=== PATIENT | female | born 1945 | race Caucasian/White ===

== ENCOUNTER → 2024-09-06 | Outpatient (CLI) | payer MEDICARE ==
[2024-09-07 02:51] LABS: HCT 40.3 % (37.2-46.3); HGB 11.8 g/dL (12.0-15.0); MCH 23.4 pg (27.0-32.0); MCHC 29.3 g/dL (32.0-37.0); Mean Platelet Volume 12.7 FL (9.5-12.2); NRBC Per 100 WBC 0 X 10*3/uL (0.00-0.01); Platelet Count 269 X 10*3/uL (140-440); RBC 5.04 X 10*6/uL (4.10-5.20); RDW 16.4 % (11.5-14.5); WBC 9.49 X 10*3/uL (4.50-10.00)
[2024-09-07 03:14] LABS: Blood Urea Nitrogen 15.6 mg/dL (9.0-27.0)
[2024-09-07 03:15] LABS: Carbon Dioxide 26.2 mmol/L (21.6-31.8); Chloride 105 mmol/L (96-109); Potassium 4.5 mmol/L (3.5-5.5); Sodium 143 mmol/L (135-145)
== END | disposition home or self-care (01) ==
LOC: LABPAT 16:02
PROVIDERS: ATTEND Internal Medicine Interventional Cardiology
CPT/HCPCS: 80051; 82565; 84520; 85027

== ENCOUNTER 2024-09-10 08:04 | Inpatient (IN) | payer MEDICARE ==
[~2024-09-10 08:04] MED LIST: ALPRAZolam 0.5 MG TAB PO PRN; NITROGLYCERIN SL TABS 0.4 MG TAB SUBLINGUAL PRN
[2024-09-10] MEDS: SODIUM CHLORIDE 0.9% 1,000 ML in EMPTY BAG 1 BAG IV SCH (08:20)
[2024-09-10] MEDS: IV FLUID CONTINUATION 1,000 ML IV ONE (08:20)
[2024-09-10] MEDS: SODIUM CHLORIDE 0.9% 1,000 ML IV SCH (08:30)
[2024-09-10] MEDS: ASPIRIN 325 MG TAB PO STA (08:47)
[2024-09-10] MEDS: ATORVASTATIN 80 MG TAB PO STA (08:47)
[2024-09-10] MEDS: HEPARIN SODIUM,PORCINE 10,000 UNIT in SODIUM CHLORIDE 0.9% 1,000 ML IRRIGATION PRN (09:53)
[2024-09-10] MEDS: HEPARIN SODIUM,PORCINE (1 ML) 2,500 UNIT in SODIUM CHLORIDE 0.9% 250 ML IRRIGATION PRN (09:53)
[2024-09-10] MEDS: VERAPAMIL SYRINGE (5 MG/10 ML) INTRAARTER ONE (10:22)
[2024-09-10] MEDS: LIDOCAINE 1% INJ 10MG/ML (20 ML MDV) SQ ONE (10:22)
[2024-09-10] MEDS: MIDAZOLAM 2 MG/2 ML VIAL IVP ONE (10:23)
[2024-09-10] MEDS: HEPARIN SODIUM 1,000 UN/ML (10ML VL) IVP ONE (10:25)
[2024-09-10] MEDS ORDERED: RX INFO: IV CONTRAST WAS GIVEN 1 EACH MISC MISCELLANE PRN (10:34)
[2024-09-10] MEDS: IOPAMIDOL-370 100ML BTL INJ ONE (10:47)
--- NOTE | 2024-09-10 10:58 | P.PCN ---
Date of Procedure: 09/10/24 Operative Findings: CARDIAC CATHETERIZATION PERFORMING PHYSICIAN: Jayce Bautista MD, RPVI PROCEDURE PERFORMED: 1. Selective right and left coronary angiogram 2. Left heart catheterization 3. Ultrasound-guided access of the right radial artery INDICATION: Chest discomfort concerning for angina COMPLICATION: None APPROACH: Right radial artery LEVEL OF SEDATION: Moderate with a sedation length of 18 minutes PROCEDURE DESCRIPTION: After obtaining an informed consent, the patient was brought to cardiac analytical lab technician. Local anesthesia was performed using lidocaine subcutaneously. The right radial artery was cannulated using Seldinger technique, the guidewire passed easily, following that we advanced a 5-[place] sheath dilator assembly, the wire and dilator were removed and sheath was flushed. Following that, 2 mg of verapamil along with 5000 unit heparin were given. Selective right and left coronary angiogram using a 6-Green[place]ic JR4 and JL 3.5 catheters. Following that we did left heart catheterization using 6-Green[place]ic pigtail catheter. The procedure was completed there was no complication. SELECTIVE CORONARY ANGIOGRAM: The right coronary artery: Calcified and large-caliber vessel and dominant vessel with ostial lesion appears to be in the range of 80% and mid lesion appears to be in the range of 80 to 90%. Left main: Calcified with ostial lesion secondary to ulcerated plaque appears to be in the range of 80 to 90% The left circumflex: Large-caliber vessel nondominant vessel with intermediate disease involving the midportion The left anterior descending artery: Medium to large caliber vessel with also mild to moderate diffuse disease noted HEMODYNAMICS: The LVEDP was about 12 mmHg with no significant gradient across aortic valve CONCLUSION: 1. Calcified right and left coronary system 2. Critical disease involving the ostial RCA and mid RCA as well as critical disease involving the ostial left main coronary artery POSTPROCEDURE MANAGEMENT: Evaluate the patient for CABG
[2024-09-10] MEDS: GABAPENTIN 400 MG CAP PO STA (12:45)
[2024-09-10 13:12] LABS: Basophils % (A) 1 %; Eosinophils # (A) 0.3 k/uL (0-0.7); Eosinophils % (A) 5 %; HCT 37.1 % (34.0-46.0); HGB 11.4 gm/dL (11.4-16.0); Hypochromasia Marked; Lymphocytes # (A) 2.5 k/uL (1.0-4.8); Lymphocytes % (A) 33 %; MCH 23.9 pg (25.0-35.0); MCHC 30.6 g/dL (31.0-37.0); MCV 78.2 fL (80.0-100.0); Monocytes # (A) 0.5 k/uL (0-1.0); Monocytes % (A) 7 %; Neutrophils % (A) 54 %; Platelet Count 208 k/uL (150-450); RBC 4.75 m/uL (3.80-5.40); RDW 15.2 % (11.5-15.5); WBC 7.5 k/uL (3.8-10.6)
[2024-09-10 13:26] LABS: Prothrombin Time 11.2 sec (10.0-12.5)
[2024-09-10] MEDS ORDERED: HEPARIN SODIUM 1,000 UN/ML (10ML VL) IV PRN (14:00)
--- NOTE | 2024-09-10 14:52 | P.GSCN ---
History of Present Illness Consult date: 09/10/24 Reason for Consult: Coronary artery disease with left main disease Requesting physician: Jayce Bautista History of present illness: This is a 79-year-old female who follows outpatient with Dr. Olivo for primary care and Dr. Bautista for cardiology. She has a previous medical history of hypertension, hyperlipidemia, asthma, trigeminal neuralgia, arthritis, previous tobacco dependence, and family history of coronary artery disease. She has been experiencing episodes of chest tightness with arm ache for approximately 1 month. This occurs mostly with activity but does occur occasionally at rest. She denies shortness of breath, nausea, vomiting, dizziness, or any other symptomatology. She was recommended to undergo heart catheterization which was completed today by Dr. Bautista which revealed left main coronary stenosis 80 to 90%, mild to moderate diffuse disease in the LAD, intermediate disease in the midportion of the left circumflex, 80% ostial RCA disease with mid RCA 80 to 90% stenosis. Of note the patient's last echocardiogram completed in the cardiology office from December of this year reported normal left ventricular systolic size and function with EF 55 to 60%, mild concentric left ventricular hypertrophy, mild aortic regurgitation, moderate mitral regurgitation, and mild tricuspid regurgitation. Due to findings on heart catheterization consultation was placed to cardiothoracic surgery for surgical revascularization recommendations. Review of Systems Review of systems was completed and was negative except as noted - Cardiovascular Reports as per HPI, Reports chest pain Past Medical History Past Medical History: Asthma, Coronary Artery Disease (CAD), Chest Pain / Angina, Hyperlipidemia, Hypertension, Osteoarthritis (OA), Skin Disorder Additional Past Medical History / Comment(s): trigeminal neuralgia, had wound on right calf-now healed History of Any Multi-Drug Resistant Organisms: None Reported Past Surgical History: Appendectomy, Hysterectomy, Tonsillectomy Additional Past Surgical History / Comment(s): rossana cataracts removed Past Anesthesia/Blood Transfusion Reactions: No Reported Reaction Past Psychological History: No Psychological Hx Reported Smoking Status: Former smoker Past Alcohol Use History: None Reported Past Drug Use History: None Reported Additional History: Quit smoking more than 30 years ago - Past Family History Mother Family Medical History: Coronary Artery Disease (CAD) Father Family Medical History: Cancer Medications and Allergies Home Medications Medication Instructions Recorded Confirmed Type Albuterol Inhaler [Ventolin Hfa 1 - 2 puff INHALATION Q6H PRN 09/08/24 09/08/24 History Inhaler] Aspirin 81 mg PO DAILY 09/08/24 09/10/24 History Atorvastatin [Lipitor] 40 mg PO HS 09/08/24 09/10/24 History Baclofen 10 mg PO HS 09/08/24 09/10/24 History Escitalopram [Lexapro] 10 mg PO DAILY 09/08/24 09/10/24 History Gabapentin [Neurontin] 800 mg PO TID 09/08/24 09/10/24 History HYDROcodone/APAP 5-325MG [[place] 1 tab PO Q6HR PRN 09/08/24 09/10/24 History 5-325] Losartan Potassium [Cozaar] 100 mg PO HS 09/08/24 09/10/24 History Metoprolol Succinate (ER) [Toprol 25 mg PO DAILY 09/08/24 09/10/24 History Xl] Allergies Allergy/AdvReac Type Severity Reaction Status Date / Time No Known Allergies Allergy Verified 09/08/24 13:15 Surgical - Exam Vital Signs Temp Pulse Resp BP Pulse Ox 97.9 F 74 16 164/68 95 09/10/24 08:17 09/10/24 08:17 09/10/24 08:17 09/10/24 08:17 09/10/24 08:17 CONSTITUTIONAL: Awake and alert, appears comfortable, cooperative, well- developed, well-nourished, no pain, no acute distress EYES: Pupils equal, round, reactive to light, normal ocular movement ENT: Moist mucous membranes without oral lesions present NECK: No masses, no bruits, trachea midline RESPIRATORY: Lungs sounds clear to auscultation bilaterally. Respirations even, nonlabored. Currently on room air with oxygen saturation 95%. Strong co ugh. No chest wall deformities. No clubbing or cyanosis present CARDIOVASCULAR: S1, S2 present. Regular rate and rhythm, sinus rhythm on telemetry. Palpable peripheral pulses bilaterally. No edema present. No calf pain or tenderness noted. No significant lower extremity varicosities noted GASTROINTESTINAL: Abdomen soft, nontender, nondistended without masses or organomegaly noted. There is no rebound or guarding present. Active bowel sounds present 4 quadrants. GENITOURINARY: Deferred INTEGUMENTARY: Skin is warm and dry with evidence of good perfusion. NEUROLOGIC: Cranial nerves II through XII intact, normal coordination, no obvious motor or sensory deficits, speech is normal MUSKULOSKELETAL: Able to move all extremities, strength equal bilaterally, normal posture PSYCHIATRIC: Alert and oriented to person place and time, appropriate affect, intact judgment and insight CLINICAL FRAILTY SCORE 3 Results - Labs 09/10/24 12:55 Abnormal Lab Results - Last 24 Hours (Table) 09/10/24 09/10/24 Range/Units 12:55 12:55 MCV 78.2 L (80.0-100.0) fL MCH 23.9 L (25.0-35.0) pg MCHC 30.6 L (31.0-37.0) g/dL APTT 39.0 H (22.0-30.0) sec - Imaging Additional studies: Heart catheterization films reviewed Assessment and Plan Assessment: Coronary artery disease with left main disease Moderate mitral regurgitation on most recent transthoracic echocardiogram Normal left ventricular systolic function with EF 55 to 60% History of hypertension Hyperlipidemia Asthma Trigeminal neuralgia Arthritis Previous tobacco dependence Family history of coronary artery disease Plan: The patient was seen and examined sitting up on a cart in the Extended Stay unit in no acute distress. Currently denies any chest pain or shortness of breath. Daughter was present. The usual perioperative course of open-heart surgery was discussed in detail the patient and her daughter, risks and benefits were reviewed, all questions were answered. Preoperative testing was initiated. Once completed we will calculate STS risk score and discuss with the patient. Will complete 5 m walk test. Discussed the case briefly with Dr. King, will discuss the case in detail with Dr. Gandhi tomorrow. Recommend continuing to maximize medical therapy with aspirin, statin, beta-daisy therapy. Increase activity as tolerated. More recommendations to follow once testing has been completed and patient has been seen by the surgeon. Thank you Dr. Bautista for this consult, we look forward to working with you in the care of this patient. I have personally seen and examined the patient, performed the documentation and the assessment and plan as written. Number of minutes spent on the visit: 30. ELEANOR Bell
--- NOTE | 2024-09-10 16:39 | US ---
EXAMINATION TYPE: US carotid duplex BILAT DATE OF EXAM: 09/10/2024 COMPARISON: NONE CLINICAL INDICATION: Female, 79 years old with history of preop cardiac surgery; Additional History: Z01.81- Pre-operative exam TECHNIQUE: Grayscale, color Doppler and spectral Doppler evaluation of the bilateral carotid systems and vertebral arteries.Indirect Doppler criteria was utilized. FINDINGS: EXAM MEASUREMENTS: RIGHT: Peak Systolic Velocity (PSV) cm/sec ----- Right CCA: 86 ----- Right ICA: 100 ----- Right ECA: 144 ICA/CCA ratio: 1.2 RIGHT: End Diastole cm/sec ----- Right CCA: 14 ----- Right ICA: 17 ----- Right ECA: 15 LEFT: Peak Systolic Velocity (PSV) cm/sec ----- Left CCA: 80 ----- Left ICA: 85 ----- Left ECA: 78 ICA/CCA ratio: 1.1 LEFT: End Diastole cm/sec ----- Left CCA: 15 ----- Left ICA: 16 ----- Left ECA: 9 VERTEBRALS (direction of flow): Right Vertebral: Antegrade Left Vertebral: Antegrade Rhythm: Normal MEDICAL TRANSCRIPTION RADIOLOGY NOTES: No intimal thickening, calcified plaque seen bilateral CCAs, CCA bulbs, and Proxim al ICAs. Elevated velocities seen within the right ECA IMPRESSION: Right: Less than 50% stenosis of the carotid bifurcation. Normal (no stenosis)=ICA PSV < 125 cm/s: ra tonya < 2.0: ICA EDV<40 cm/s. Left: Less than 50% stenosis of the carotid bifurcation. Normal (no stenosis)=ICA PSV < 125 cm/s: rat io < 2.0: ICA EDV<40 cm/s. Criteria for Assigning % of Stenosis / Diameter reduction (Estimation based on the indirect measurements of the internal carotid artery velocities (ICA PSV). 1. Normal (no stenosis)=ICA PSV < 125 cm/s: ratio < 2.0: ICA EDV<40 cm/s. 2. Less than 50% stenosis=ICA PSV < 125 cm/s: ratio < 2.0: ICA EDV<40 cm/s. 3. 50 to 69% stenosis=ICA PSV of 125 to 230 cm/s: ration 2.0 ? 4.0: ICA EDV 40-100 cm/s. 4. Greater than 70% stenosis to near occlusion= ICA PSV > 230 cm/s: ratio > 4.0: ICA EDV > 100 cm/s. 5. Near occlusion= ICA PSV velocities may be low or undetectable: variable ratio and ICA EDV. 6. Total occlusion=unable to detect flow. [facility], , 09/10/2024 4:36 PM
--- NOTE | 2024-09-10 16:40 | US ---
EXAMINATION TYPE: US vein mapping BILAT DATE OF EXAM: 09/10/2024 4:16 PM COMPARISON: NONE CLINICAL INDICATION: Female, 79 years old with history of preop cardiac surgery; TECHNIQUE: Grayscale and color Doppler imaging of the lower extremity venous system. SIDE PERFORMED: Bilateral FINDINGS: PATIENT HISTORY: Smoker: No Heart Disease: No Previous DVT: No Vascular Surgery: No Discoloration: No Hypertension: Yes Diabetes: No Paralysis: No Varicosities: No Edema: No DUPLEX FINDINGS: Greater Saphenous: Color flow seen Lesser Saphenous: Color flow seen Measurements in mm: Right Greater Saphenous: Groin: 6.4 x 7.9 mm High Thigh: 4.7 x 5.0 mm Mid Thigh: 3.9 x 5.3 mm Above Knee: 2.9 x 3.0 mm Knee: 3.7 x 4.7 mm Below Knee: 3.4 x 3.9 mm Mid Calf: 3.0 x 2.7 mm At Ankle: 2.1 x 2.7 mm Left Greater Saphenous: Groin: 8.6 x 8.1 mm High Thigh: 3.6 x 4.1 mm Mid Thigh: 4.7 x 4.8 mm Above Knee: 3.6 x 5.6 mm Knee: 3.2 x 3.2 mm Below Knee: 3.0 x 3.6 mm Mid Calf: 2.3 x 2.1 mm At Ankle: 2.3 x 2.3 mm IMPRESSION: 1. No evidence for occlusion. 2. GSV measurements listed above. 3. Performing surgeon to determine viability as conduit. [facility], Workstation: [id number], 09/10/2024 4:38 PM
--- NOTE | 2024-09-10 16:41 | US ---
EXAMINATION TYPE: US arterial LE single level DATE OF EXAM: 09/10/2024 4:23 PM CLINICAL INDICATION: Female, 79 years old with history of precardiac surgery. TECHNIQUE: Systolic pressures were taken of the upper and lower extremity arteries with ankle-brachia l indices and toe brachial indices calculated bilaterally. History of: Smoker: Yes Hypertension: Yes Diabetic: No Hyperlipidemia: Yes TIA/CVA: No Previous Vascular Surgery: No CAD: No OK: No Vascular Ulcers: No Claudication: No Gangrene: No FINDINGS: Doppler Waveforms: Right: Biphasic Left: Biphasic Pulse Volume Recording: NA Pressure Gradients: NA Brachial Artery systolic pressure: Right systolic pressure: Deferred due to catheterization Left systolic pressure: 135 Posterior Tibial artery systolic pressure: Right: 162 Left: 174 Dorsalis Pedis artery systolic pressure: Right: 147 Left: 172 Toe artery systolic pressure: Right: Not needed Left: Not needed Ankle-Brachial Indices: Right: 1.20 Left: 1.29 (Vessel hardening > 1.4; Normal 0.9 - 1.4, Moderate 0.7 - 0.9, Severe 0.5-0.7) Toe Brachial Indices: Right: Not needed Left: Not needed (Normal > 0.6; Mild 0.35 - 0.59, Moderate 0.12 - 0.34, Severe <0.12) IMPRESSION: Normal ankle-brachial brachial indices bilaterally. [facility], Workstation: [id number], 09/10/2024 4:39 PM
--- NOTE | 2024-09-10 17:45 | CT ---
EXAMINATION TYPE: CT chest wo con DATE OF EXAM: 09/10/2024 5:21 PM COMPARISON: None CLINICAL INDICATION: Female, 79 years old with history of eval aorta for clampability; PH[facility], eval aort a for clampability TECHNIQUE: Multiple axial images were obtained through the chest. Sagittal and coronal reformats were created for review. MIP was performed on a separate workstation. Contrast used: mL of (None if empty) Oral contrast used: (None if empty) CT DLP: 491.8 mGycm, Automated exposure control for dose reduction was used. FINDINGS: LUNGS/ PLEURA: No focal consolidation, pneumothorax or pleural effusion. Right upper lung pulmonary n odule measuring 4 mm series 201 image 49 AIRWAY: Patent and unremarkable. HEART: Size within normal limits.Severe coronary artery calcifications. Mild to moderate aortic valve calcifications. MEDIASTINUM: No gross evidence of adenopathy. VASCULATURE: No aortic aneurysm. Mild atherosclerosis of the arterial vasculature. MUSCULOSKELETAL: No acute osseous abnormalities SOFT TISSUES/LYMPH NODES: Unremarkable. LOWER NECK: No significant findings. UPPER ABDOMEN: Small hiatal hernia. IMPRESSION: 1. No evidence for aortic aneurysm. Mild aortic arch calcifications. 2. No acute process in the chest. 3. Severe coronary artery atherosclerosis. Mild to moderate aortic valve calcifications. 4. Right upper lung 3 mm pulmonary nodule. Consider yearly lung cancer screening. 5. Small hiatal hernia. [facility], , 09/10/2024 5:43 PM
[2024-09-10 18:09] LABS: Appearance,Urine Clear (Clear); Bilirubin,Urine Negative (Negative); Blood,Urine Negative (Negative); Color,Urine Colorless; Glucose,Urine (UA) Negative (Negative); Ketones,Urine Negative (Negative); Leukocyte Esterase,Urine Negative (Negative); Nitrite,Urine Negative (Negative); PH, Urine 6.5 (5.0-8.0); Protein,Urine Negative (Negative); Specific Gravity,Urine 1.007 (1.001-1.035); Urobilinogen,Urine <2.0 mg/dL (<2.0)
[2024-09-10] MEDS: HEPARIN SOD,PORK IN 0.45% NACL 25,000 UNIT in 0.45% NACL 1 250ML.BAG IV SCH (18:13)
[2024-09-10] MEDS: HEPARIN SODIUM 1,000 UN/ML (10ML VL) IV ONE (18:14)
[2024-09-10] MEDS: GABAPENTIN 400 MG CAP PO SCH (20:57)
[2024-09-10] MEDS: ATORVASTATIN 40 MG TAB PO SCH (20:57)
[2024-09-10] MEDS: LOSARTAN 50 MG TAB PO SCH (20:57)
[2024-09-10] MEDS: BACLOFEN 10 MG TAB PO SCH (20:57)
[2024-09-10] MEDS: ALPRAZolam 0.25 MG TAB PO PRN (23:14)
[2024-09-11 02:54] LABS: Chol/HDL Ratio 2.63 Ratio; LDL Cholesterol,Calculated 50.2 mg/dL (0.0-131.0)
[2024-09-11 03:31] LABS: Hepatitis A Antibody IgM Nonreactive (Nonreactive); Hepatitis B Core IgM Nonreactive (Nonreactive); Hepatitis B Surface Antigen Nonreactive (Nonreactive); Hepatitis C IgG Antibody Nonreactive (Nonreactive)
--- NOTE | 2024-09-11 06:34 | P.CRDCN ---
History of Present Illness Consult date: 09/11/24 History of present illness: The patient is a pleasant 79-year-old female patient with a past medical history significant for CAD and hypertension and dyslipidemia and overweight was seen in the office recently for further evaluation of chest discomfort with exertion con cerning for angina. The symptoms of chest discomfort has slightly progressed compared to before and given the nature of the symptoms I advised the patient to undergo a heart catheterization. The patient underwent a heart catheterization yesterday and that revealed extremely calcified right and left coronary systems with critical disease involving the ostial and mid RCA and critical disease involving the ostial left main with mild to moderate diffuse disease involving the LCx and LAD. With that being said an open heart consult was placed and the patient is processed to be seen by the surgical team. She was seen and evaluated this morning and she is asymptomatic and hemodynamically stable because of the finding on the heart catheterization I advised the patient to be admitted to the hospital and started on IV heparin and to undergo revascularization before she would be discharged home and that was discussed with her and her family in details and the patient is in full understanding and agreement. The physical examination is remarkable for regular rhythm with a systolic murmur at the right and left upper sternal border with clear breathing sounds bilaterally and no edema was noted. Please note that the patient underwent carotid duplex study and that showed mild disease bilaterally and CT scan also came in to be overall unremarkable Assessment Severe CAD as described above Multiple comorbid conditions including hypertension dyslipidemia Plan Continue the current medical regimen including aspirin Increase the dose of atorvastatin Waiting for the patient to be evaluated by the surgical team Continue heparin IV Past Medical History Past Medical History: Asthma, Coronary Artery Disease (CAD), Chest Pain / Angina, Hyperlipidemia, Hypertension, Osteoarthritis (OA), Skin Disorder Additional Past Medical History / Comment(s): trigeminal neuralgia, had wound on right calf-now healed History of Any Multi-Drug Resistant Organisms: None Reported Past Surgical History: Appendectomy, Hysterectomy, Tonsillectomy Additional Past Surgical History / Comment(s): rossana cataracts removed Past Anesthesia/Blood Transfusion Reactions: No Reported Reaction Past Psychological History: No Psychological Hx Reported Smoking Status: Former smoker Past Alcohol Use History: None Reported Past Drug Use History: None Reported - Past Family History Mother Family Medical History: Coronary Artery Disease (CAD) Father Family Medical History: Cancer Medications and Allergies Home Medications Medication Instructions Recorded Confirmed Type Albuterol Inhaler [Ventolin Hfa 1 - 2 puff INHALATION Q6H PRN 09/08/24 09/08/24 History Inhaler] Aspirin 81 mg PO DAILY 09/08/24 09/10/24 History Atorvastatin [Lipitor] 40 mg PO HS 09/08/24 09/10/24 History Baclofen 10 mg PO HS 09/08/24 09/10/24 History Escitalopram [Lexapro] 10 mg PO DAILY 09/08/24 09/10/24 History Gabapentin [Neurontin] 800 mg PO TID 09/08/24 09/10/24 History HYDROcodone/APAP 5-325MG [[place] 1 tab PO Q6HR PRN 09/08/24 09/10/24 History 5-325] Losartan Potassium [Cozaar] 100 mg PO HS 09/08/24 09/10/24 History Metoprolol Succinate (ER) [Toprol 25 mg PO DAILY 09/08/24 09/10/24 History Xl] Allergies Allergy/AdvReac Type Severity Reaction Status Date / Time No Known Allergies Allergy Verified 09/08/24 13:15 Physical Exam Vitals: Vital Signs Temp Pulse Resp BP BP Pulse Ox 09/11/24 04:48 98.1 F 65 18 119/56 98 09/11/24 01:15 71 09/10/24 23:17 98.6 F 71 18 148/61 93 L 09/10/24 20:00 64 09/10/24 19:59 98.0 F 67 18 137/73 97 09/10/24 16:07 67 16 135/68 95 09/10/24 13:57 76 18 157/66 97 09/10/24 11:34 72 14 116/58 94 L 09/10/24 11:04 72 16 135/60 93 L 09/10/24 10:49 78 14 138/68 94 L 09/10/24 08:17 97.9 F 74 16 164/68 148/72 95 Intake and Output 09/10/24 09/10/24 09/11/24 14:59 22:59 06:59 Intake Total 530 525.4 86.83 Balance 530 525.4 86.83 Intake: IV 530 150 Intake, IV Titration 257.4 86.83 Amount Heparin Sod,Pork in 0.45% 32.4 86.83 NaCl 25,000 unit In 0.45 % NaCl 1 250ml.bag @ 12 UNITS/KG/HR 10.764 mls/hr IV .[id number] [facility] [place] Rx#: [id number] Sodium Chloride 0.9% 1, 225 000 ml @ 75 mls/hr IV . [id number] [facility] Rx#:[id number] Oral 118 Other: Voiding Method Toilet # Voids 1 1 3 Weight 89.7 kg Results 09/10/24 12:55 Coagulation 09/10/24 09/11/24 Range/Units 12:55 00:24 PT 11.2 (10.0-12.5) sec APTT 39.0 H 169.3 H* (22.0-30.0) sec Lipids 09/10/24 Range/Units 12:55 Triglycerides 133.00 (0.00-149.00) mg/dL Cholesterol 124.00 (0.00-200.00) mg/dL HDL Cholesterol 47.20 (40.00-60.00) mg/dL Cholesterol/HDL Ratio 2.63 Ratio CBC 09/10/24 Range/Units 12:55 WBC 7.5 (3.8-10.6) k/uL RBC 4.75 (3.80-5.40) m/uL Hgb 11.4 (11.4-16.0) gm/dL Hct 37.1 (34.0-46.0) % Plt Count 208 (150-450) k/uL Current Medications Generic Name Dose Route Start Last Admin Trade Name Freq PRN Reason Stop Dose Admin Hydrocodone Bitart/Acetaminophen 1 each 09/10/24 20:02 Hydrocodone/Apap 5-325mg 1 Each Tab PO Q6HR PRN Pain Alprazolam 0.25 mg 09/10/24 07:40 09/10/24 23:14 Alprazolam 0.25 Mg Tab PO 10/10/24 07:39 0.25 mg Q6HR PRN Administration Mild Anxiety Alprazolam 0.5 mg 09/10/24 07:40 Alprazolam 0.5 Mg Tab PO 10/10/24 07:39 Q6HR PRN Moderate Anxiety Aspirin 81 mg 09/11/24 09:00 Aspirin 81 Mg PO DAILY [facility] Atorvastatin Calcium 80 mg 09/11/24 21:00 Atorvastatin 80 Mg Tab PO HS [facility] Baclofen 10 mg 09/10/24 21:00 09/10/24 20:57 Baclofen 10 Mg Tab PO 10 mg HS EMANUEL Administration Escitalopram Oxalate 10 mg 09/11/24 09:00 Escitalopram 10 Mg Tab PO DAILY EMANUEL Gabapentin 800 mg 09/10/24 22:00 09/10/24 20:57 Gabapentin 400 Mg Cap PO 800 mg TID EMANUEL Administration Heparin Sodium (Porcine) 0 unit 09/10/24 14:00 Heparin Sodium 1,000 Un/Ml (10ml Vl) IV 10/10/24 13:59 PER PROTOCOL PRN Low PTT Protocol Sodium Chloride 1,000 ml/ IV 1,000 mls @ 90.265 mls/hr 09/10/24 07:40 09/11/24 05:51 Solution IV 10/10/24 07:39 Not Given .[id number] EMANUEL 1 ML/KG/HR Heparin Sodium/Sodium Chloride 250 mls @ 10.764 mls/hr 09/10/24 14:00 09/11/24 03:23 25,000 unit/ Sodium Chloride IV 10/10/24 13:59 9 units/kg/hr .[id number] EMANUEL 8.073 mls/hr Titration Protocol 12 UNITS/KG/HR Losartan Potassium 100 mg 09/10/24 21:00 09/10/24 20:57 Losartan 50 Mg Tab PO 100 mg HS EMANUEL Administration Metoprolol Succinate 25 mg 09/11/24 09:00 Metoprolol Succinate (Er) 25 Mg Tab.Er.24h PO DAILY [facility] [place] Miscellaneous Information 1 each 09/10/24 10:34 Rx Info: Iv Contrast Was Given 1 Each Misc MISCELLANE 09/12/24 10:33 DAILY PRN Per Protocol Nitroglycerin 0.4 mg 09/10/24 07:40 Nitroglycerin Sl Tabs 0.4 Mg Tab SUBLINGUAL 10/10/24 07:39 Q5M PRN Chest Pain Intake and Output 09/10/24 09/10/24 09/11/24 14:59 22:59 06:59 Intake Total 530 525.4 86.83 Balance 530 525.4 86.83 Intake: IV 530 150 Intake, IV Titration 257.4 86.83 Amount Heparin Sod,Pork in 0.45% 32.4 86.83 NaCl 25,000 unit In 0.45 % NaCl 1 250ml.bag @ 12 UNITS/KG/HR 10.764 mls/hr IV .[id number] [facility] [place] Rx#: [id number] Sodium Chloride 0.9% 1, 225 000 ml @ 75 mls/hr IV . [id number] [facility] [place] Rx#:[id number] Oral 118 Other: Voiding Method Toilet # Voids 1 1 3 Weight 89.7 kg Patient Weight 09/11/24 06:59 Weight 89.7 kg 09/10/24 12:55
--- NOTE | 2024-09-11 07:25 | XR ---
EXAMINATION TYPE: XR chest 2V DATE OF EXAM: 09/11/2024 6:47 AM COMPARISON: None CLINICAL INDICATION: Female, 79 years old with history of preop open heart; [facility] TECHNIQUE: XR chest 2V Frontal and lateral views of the chest. FINDINGS: Lungs/Pleura: There is no evidence of pleural effusion, focal consolidation, or pneumothorax. Pulmonary vascularity: Unremarkable. Heart/mediastinum: Cardiomediastinal silhouette is unremarkable. Musculoskeletal: No acute osseous pathology. Other findings: None IMPRESSION: No acute cardiopulmonary disease/process. [facility], , 09/11/2024 7:23 AM
[2024-09-11] MEDS: HYDROcodone/APAP 5-325MG 1 EACH TAB PO PRN (09:11)
[2024-09-11] MEDS: METOPROLOL SUCCINATE (ER) 25 MG TAB.ER.24H PO SCH (09:12)
[2024-09-11] MEDS: ESCITALOPRAM 10 MG TAB PO SCH (09:12)
[2024-09-11] MEDS: ASPIRIN 81 MG PO SCH (09:12)
[2024-09-11 09:54] LABS: Basophils % (A) 0 %; Eosinophils # (A) 0.3 k/uL (0-0.7); Eosinophils % (A) 5 %; HGB 12.1 gm/dL (11.4-16.0); Hypochromasia Marked; Lymphocytes # (A) 1.6 k/uL (1.0-4.8); Lymphocytes % (A) 23 %; MCH 23.5 pg (25.0-35.0); MCHC 29.6 g/dL (31.0-37.0); MCV 79.6 fL (80.0-100.0); Mean Platelet Volume 8.3; Monocytes # (A) 0.5 k/uL (0-1.0); Monocytes % (A) 7 %; Neutrophils # (A) 4.5 k/uL (1.3-7.7); Neutrophils % (A) 65 %; Platelet Count 206 k/uL (150-450); RBC 5.16 m/uL (3.80-5.40); RDW 15.4 % (11.5-15.5)
[2024-09-11 10:05] LABS: Prothrombin Time 11.3 sec (10.0-12.5)
[2024-09-11 10:38] LABS: ALT 14 U/L (4-34); AST 23 U/L (14-36); African American GFR (CKD) 80 (>60 ml/min/1.73 sqM); Albumin 3.9 g/dL (3.5-5.0); Alkaline Phosphatase 51 U/L (38-126); Anion Gap 8 mmol/L; Blood Urea Nitrogen 13 mg/dL (7-17); Calcium 8.8 mg/dL (8.4-10.2); Carbon Dioxide 26 mmol/L (22-30); Chloride 109 mmol/L (98-107); Glucose 118 mg/dL (74-99); Magnesium 2.1 mg/dL (1.6-2.3); Non-African American GFR(CKD) 70 (>60 ml/min/1.73 sqM); Potassium 4.2 mmol/L (3.5-5.1); Sodium 143 mmol/L (137-145); Total Bilirubin 0.4 mg/dL (0.2-1.3); Total Protein 6.6 g/dL (6.3-8.2)
[2024-09-11] MEDS: ATORVASTATIN 80 MG TAB PO SCH (20:57)
--- NOTE | 2024-09-12 06:53 | P.PN ---
Subjective Progress Note Date: 09/12/24 The patient is a pleasant 79-year-old female patient with a past medical history significant for CAD and hypertension and dyslipidemia and overweight was seen in the office recently for further evaluation of chest discomfort with exertion concerning for angina. The symptoms of chest discomfort has slightly progressed compared to before and given the nature of the symptoms I advised the patient to undergo a heart catheterization. The patient underwent a heart catheterization yesterday and that revealed extremely calcified right and left coronary systems with critical disease involving the ostial and mid RCA and critical disease involving the ostial left main with mild to moderate diffuse disease involving the LCx and LAD. With that being said an open heart consult was placed and the patient is processed to be seen by the surgical team. She was seen and evaluated this morning and she is asymptomatic and hemodynamically stable because of the finding on the heart catheterization I advised the patient to be admitted to the hospital and started on IV heparin and to undergo revascularization before she would be discharged home and that was discussed with her and her family in details and the patient is in full understanding and agreement. The physical examination is remarkable for regular rhythm with a systolic murmur at the right and left upper sternal border with clear breathing sounds bilaterally and no edema was noted. Please note that the patient underwent carotid duplex study and that showed mild disease bilaterally and CT scan also came in to be overall unremarkable October 09, 2024 The patient was seen and evaluated this morning. She talk to her family yesterday and she would like to proceed with percutaneous coronary intervention. The procedure in details was discussed with the patient and the family yesterday and they are in full understanding and agreement that the procedure is a high risk procedure. Will plan to proceed with PCI later on today with adjunc tive use of Impella CP for support. She reports no symptoms of chest pain or chest discomfort at this point since she was started on heparin. Examination is remarkable for regular rhythm with a clear breathing sounds bilaterally and no edema was noted. Will follow-up on the echocardiogram as well. Assessment Severe CAD as described above Multiple comorbid conditions including hypertension dyslipidemia Plan Continue the current medical regimen including aspirin Increase the dose of atorvastatin Follow-up with the echocardiogram Proceed with PCI Objective - Vital Signs Vital signs: Vital Signs Temp 98.0 F 09/12/24 04:51 Pulse 75 09/12/24 04:51 Resp 16 09/12/24 04:51 BP 135/73 09/12/24 04:51 Pulse Ox 96 09/12/24 04:51 FiO2 Intake & Output 09/11/24 09/11/24 09/12/24 06:59 18:59 05:59 Intake Total 344.23 1293.857 Balance 344.23 1293.857 Weight 88.8 kg Intake: Intake, IV Titration 344.23 93.857 Amount Heparin Sod,Pork in 0.45% 119.23 93.857 NaCl 25,000 unit In 0.45 % NaCl 1 250ml.bag @ 12 UNITS/KG/HR 10.764 mls/hr IV .[id number] [facility] Rx#: [id number] Sodium Chloride 0.9% 1, 225 000 ml @ 75 mls/hr IV . [id number] [facility] Rx#:[id number] Oral 1200 Other: Voiding Method Toilet Toilet # Voids 3 2 - Labs CBC & Chem 7: 09/11/24 09:38 09/11/24 09:38 Labs: Abnormal Lab Results - Last 24 Hours (Table) 09/11/24 09/11/24 09/11/24 Range/Units 09:38 09:38 09:38 MCV 79.6 L (80.0-100.0) fL MCH 23.5 L (25.0-35.0) pg MCHC 29.6 L (31.0-37.0) g/dL APTT 80.7 H (22.0-30.0) sec Chloride 109 H (98-107) mmol/L Glucose 118 H (74-99) mg/dL 09/11/24 Range/Units 16:26 MCV (80.0-100.0) fL MCH (25.0-35.0) pg MCHC (31.0-37.0) g/dL APTT 49.2 H (22.0-30.0) sec Chloride (98-107) mmol/L Glucose (74-99) mg/dL Microbiology - Last 24 Hours (Table) 09/10/24 12:55 Nasal Screen MRSA/MSSA - Final Nasal Swab
[2024-09-12 06:59] LABS: Basophils % (A) 0 %; Eosinophils # (A) 0.3 k/uL (0-0.7); Eosinophils % (A) 4 %; HCT 39.7 % (34.0-46.0); HGB 11.8 gm/dL (11.4-16.0); Hypochromasia Marked; Lymphocytes % (A) 31 %; MCH 23.4 pg (25.0-35.0); MCHC 29.6 g/dL (31.0-37.0); MCV 79.2 fL (80.0-100.0); Mean Platelet Volume 7.2; Monocytes # (A) 0.5 k/uL (0-1.0); Monocytes % (A) 8 %; Neutrophils # (A) 3.4 k/uL (1.3-7.7); Neutrophils % (A) 53 %; Platelet Count 193 k/uL (150-450); RBC 5.02 m/uL (3.80-5.40); RDW 15.2 % (11.5-15.5); WBC 6.4 k/uL (3.8-10.6)
[2024-09-12 07:21] LABS: African American GFR (CKD) 76 (>60 ml/min/1.73 sqM); Anion Gap 3 mmol/L; Blood Urea Nitrogen 13 mg/dL (7-17); Calcium 8.9 mg/dL (8.4-10.2); Carbon Dioxide 28 mmol/L (22-30); Chloride 109 mmol/L (98-107); Glucose 83 mg/dL (74-99); Non-African American GFR(CKD) 66 (>60 ml/min/1.73 sqM); Potassium 4.2 mmol/L (3.5-5.1); Sodium 140 mmol/L (137-145)
--- NOTE | 2024-09-12 08:05 | P.PN ---
Subjective Progress Note Date: 09/12/24 Principal diagnosis: Coronary artery disease with left main disease. History of moderate mitral regurgitation on transthoracic echocardiogram 12/2023, hypertension, hyperlipidemia, asthma, trigeminal neuralgia, arthritis, previous tobacco dependence with moderate COPD, family history of coronary artery disease The patient was seen and examined this morning sitting up in bed on the cardiac stepdown unit in no acute distress. She denies any chest pain or shortness of breath currently. Remains in sinus rhythm, hemodynamically stable. She was seen yesterday by Dr. Gandhi with daughter present, recommendations for open heart surgery were discussed with the patient, however she felt she would prefer stenting. This was discussed in detail between Dr. Gandhi and Dr. Bautista. E chocardiogram was repeated to evaluate mitral regurgitation. Apparently the patient did discuss with Dr. Bautista that she would prefer stenting knowing that it is higher risk, states at her age she does not want open heart surgery. We did let patient know we are available if she needs us in the future. Objective - Vital Signs Vital signs: Vital Signs Temp 98.0 F 09/12/24 04:51 Pulse 75 09/12/24 04:51 Resp 16 09/12/24 04:51 BP 135/73 09/12/24 04:51 Pulse Ox 96 09/12/24 04:51 FiO2 Intake & Output 09/11/24 09/12/24 09/12/24 19:59 06:59 18:59 Intake Total Balance Weight Intake: Intake, IV Titration Amount Heparin Sod,Pork in 0.45% NaCl 25,000 unit In 0.45 % NaCl 1 250ml.bag @ 12 UNITS/KG/HR 10.764 mls/hr IV .[id number] [facility] Rx#: [id number] Oral Other: Voiding Method # Voids - Exam CONSTITUTIONAL: Appears comfortable, cooperative, no acute distress RESPIRATORY: Lungs sounds clear bilaterally. Respirations even, nonlabored. Currently on room air with oxygen saturation 96% CARDIOVASCULAR: S1, S2 present. Regular rate and rhythm, sinus rhythm on telemetry. Palpable peripheral pulses bilaterally. No edema present GASTROINTESTINAL: Abdomen soft, nontender, nondistended. Active bowel sounds present 4 quadrants. Tolerating diet GENITOURINARY: Continues to void INTEGUMENTARY: Skin is warm and dry NEUROLOGIC: Cranial nerves II through XII intact MUSKULOSKELETAL: Able to move all extremities, strength equal bilaterally, gait normal PSYCHIATRIC: Alert and oriented to person place and time, appropriate affect, intact judgment and insight - Allied health notes Allied health notes reviewed: nursing - Labs CBC & Chem 7: 09/12/24 06:43 09/12/24 06:43 Labs: Abnormal Lab Results - Last 24 Hours (Table) 09/11/24 09/11/24 09/11/24 Range/Units 09:38 09:38 09:38 MCV 79.6 L (80.0-100.0) fL MCH 23.5 L (25.0-35.0) pg MCHC 29.6 L (31.0-37.0) g/dL APTT 80.7 H (22.0-30.0) sec Chloride 109 H (98-107) mmol/L Glucose 118 H (74-99) mg/dL 09/11/24 09/12/24 09/12/24 Range/Units 16:26 06:43 06:43 MCV 79.2 L (80.0-100.0) fL MCH 23.4 L (25.0-35.0) pg MCHC 29.6 L (31.0-37.0) g/dL APTT 49.2 H (22.0-30.0) sec Chloride 109 H (98-107) mmol/L Glucose (74-99) mg/dL 09/12/24 Range/Units 06:43 MCV (80.0-100.0) fL MCH (25.0-35.0) pg MCHC (31.0-37.0) g/dL APTT 35.6 H (22.0-30.0) sec Chloride (98-107) mmol/L Glucose (74-99) mg/dL Microbiology - Last 24 Hours (Table) 09/10/24 12:55 Nasal Screen MRSA/MSSA - Final Nasal Swab Assessment and Plan Assessment: Coronary artery disease with left main disease Moderate mitral regurgitation on most recent transthoracic echocardiogram Normal left ventricular systolic function with EF 55 to 60% History of hypertension Hyperlipidemia Asthma Trigeminal neuralgia Arthritis Previous tobacco dependence COPD, FEV1 52% of predicted Family history of coronary artery disease Plan: Continue to maximize medical therapy with aspirin, statin, beta-daisy, IV heparin Plan is for PCI with Impella support by Dr. Bautista Will sign off. Please contact us with any questions
--- NOTE | 2024-09-12 09:54 | P.HPIM ---
History of Present Illness H&P Date: 09/11/24 Chief Complaint: Chest pain Patient is a 79-year-old female with a past medical history of asthma, hypertension, hyperlipidemia, osteoarthritis and prior history of smoking. Patient had cardiac catheterization on 09/10/2024 due to anginal symptoms. She was found to have calcified right and left coronary system and critical disease involving the ostial RCA and mid RCA as well as critical disease involving the ostial left main coronary artery. Cardiothoracic surgery was consulted for evaluation of CABG. Carotid duplex showed less than 50% stenosis of the carotid bifurcation on the right side and less than 50% stenosis of the carotid bifurcation on the left side. Lower extremity ultrasound showed normal ankle- brachial indicis bilaterally. CT chest showed no evidence for aortic aneurysm. Mild aortic arch calcifications. No acute process in the chest. Severe coronary atherosclerosis. Mild to moderate aortic valve calcifications. Right upper lobe 3 mm pulmonary nodule. Consider yearly lung cancer screening. Small hiatal hernia. Laboratory data showed WBC 7.0 hemoglobin 12.1 MCV 79.6 and platelets 206 sodium 143 potassium 4.2 chloride 109 bicarb is 26 BUN 13 and creatinine 0.81 blood sugar is 118 liver enzymes are not elevated the LDL 50.2 TSH 1.760. Hepatitis panel negative. Review of Systems Constitutional: Patient denies any fever or chills . No generalized weakness or weight loss. Abdomen: Patient denied nausea vomiting and diarrhea and abdominal pain. Cardiovascular: Patient denies any chest pain or short of breath no palpitations. Respiratory: patient denied any cough or sputum production. No shortness of breath Neurologic: Patient denied any numbness or tingling. no headache. Musculoskeletal: Patient denies any complaints of joint swelling or deformity. Skin: Negative Psychiatric: Negative Endocrine: No heat or cold intolerance. No recent weight gain. Genitourinary: No dysuria or hematuria. All other 14 point ROS negative except the above Past Medical History Past Medical History: Asthma, Coronary Artery Disease (CAD), Chest Pain / Angina, Hyperlipidemia, Hypertension, Osteoarthritis (OA), Skin Disorder Additional Past Medical History / Comment(s): trigeminal neuralgia, had wound on right calf-now healed History of Any Multi-Drug Resistant Organisms: None Reported Past Surgical History: Appendectomy, Hysterectomy, Tonsillectomy Additional Past Surgical History / Comment(s): rossana cataracts removed Past Anesthesia/Blood Transfusion Reactions: No Reported Reaction Past Psychological History: No Psychological Hx Reported Smoking Status: Former smoker Past Alcohol Use History: None Reported Past Drug Use History: None Reported - Past Family History Mother Family Medical History: Coronary Artery Disease (CAD) Father Family Medical History: Cancer Medications and Allergies Home Medications Medication Instructions Recorded Confirmed Type Albuterol Inhaler [Ventolin Hfa 1 - 2 puff INHALATION Q6H PRN 09/08/24 09/08/24 History Inhaler] Aspirin 81 mg PO DAILY 09/08/24 09/10/24 History Atorvastatin [Lipitor] 40 mg PO HS 09/08/24 09/10/24 History Baclofen 10 mg PO HS 09/08/24 09/10/24 History Escitalopram [Lexapro] 10 mg PO DAILY 09/08/24 09/10/24 History Gabapentin [Neurontin] 800 mg PO TID 09/08/24 09/10/24 History HYDROcodone/APAP 5-325MG [[place] 1 tab PO Q6HR PRN 09/08/24 09/10/24 History 5-325] Losartan Potassium [Cozaar] 100 mg PO HS 09/08/24 09/10/24 History Metoprolol Succinate (ER) [Toprol 25 mg PO DAILY 09/08/24 09/10/24 History Xl] Allergies Allergy/AdvReac Type Severity Reaction Status Date / Time No Known Allergies Allergy Verified 09/08/24 13:15 Physical Exam Vitals: Vital Signs Temp Pulse Resp BP BP Pulse Ox 09/11/24 04:48 98.1 F 65 18 119/56 98 09/11/24 01:15 71 09/10/24 23:17 98.6 F 71 18 148/61 93 L 09/10/24 20:00 64 09/10/24 19:59 98.0 F 67 18 137/73 97 09/10/24 16:07 67 16 135/68 95 09/10/24 13:57 76 18 157/66 97 09/10/24 11:34 72 14 116/58 94 L 09/10/24 11:04 72 16 135/60 93 L Intake and Output 09/10/24 09/11/24 09/11/24 22:59 06:59 14:59 Intake Total 525.4 86.83 57.857 Balance 525.4 86.83 57.857 Intake: IV 150 Intake, IV Titration 257.4 86.83 57.857 Amount Heparin Sod,Pork in 0.45% 32.4 86.83 57.857 NaCl 25,000 unit In 0.45 % NaCl 1 250ml.bag @ 12 UNITS/KG/HR 10.764 mls/hr IV .[id number] [facility] Rx#: [id number] Sodium Chloride 0.9% 1, 225 000 ml @ 75 mls/hr IV . [id number] [facility] Rx#:[id number] Oral 118 Other: Voiding Method Toilet # Voids 1 3 PHYSICAL EXAMINATION: Patient is lying in the bed comfortably, no acute distress, awake alert and oriented.. HEENT: Normocephalic. Neck is supple. Pupils reactive. Nostrils clear. Oral cavity is moist. Neck reveals no JVD, carotid bruits, or thyromegaly. CHEST EXAMINATION: Trachea is central. Symmetrical expansion. Lung aguila clear to auscultation and percussion. CARDIAC: Normal S1, S2 with no gallops. Systolic murmur present ABDOMEN: Soft. Bowel sounds normal. No organomegaly. No abdominal bruits. Extremities: reveal no edema. No clubbing or cyanosis Neurologically awake, alert, oriented x3 with well-coordinated movements. No focal deficits noted Skin: No rash or skin lesions. Psychiatric: Coperative. Nonsuicidal Musculoskeletal: No joint swelling or deformity. Normal range of motion. Results CBC & Chem 7: 09/12/24 06:43 09/12/24 06:43 Labs: Abnormal Lab Results - Last 24 Hours (Table) 09/10/24 09/10/24 09/10/24 Range/Units 12:55 12:55 12:55 MCV 78.2 L (80.0-100.0) fL MCH 23.9 L (25.0-35.0) pg MCHC 30.6 L (31.0-37.0) g/dL APTT 39.0 H (22.0-30.0) sec Chloride (98-107) mmol/L Glucose (74-99) mg/dL Hemoglobin A1c 6.2 H (<=6.0) % 09/11/24 09/11/24 09/11/24 Range/Units 00:24 09:38 09:38 MCV 79.6 L (80.0-100.0) fL MCH 23.5 L (25.0-35.0) pg MCHC 29.6 L (31.0-37.0) g/dL APTT 169.3 H* (22.0-30.0) sec Chloride 109 H (98-107) mmol/L Glucose 118 H (74-99) mg/dL Hemoglobin A1c (<=6.0) % 09/11/24 Range/Units 09:38 MCV (80.0-100.0) fL MCH (25.0-35.0) pg MCHC (31.0-37.0) g/dL APTT 80.7 H (22.0-30.0) sec Chloride (98-107) mmol/L Glucose (74-99) mg/dL Hemoglobin A1c (<=6.0) % Thrombosis Risk Factor Assmnt - DVT/VTE Prophylaxis DVT/VTE Prophylaxis: Pharmacologic Prophylaxis ordered - Choose All That Apply Any of the Below Risk Factors Present?: No Each Risk Factor Represents 3 Points: Age 75 years or older Thrombosis Risk Factor Assessment Total Risk Factor Score: 3 Thrombosis Risk Factor Assessment Level: Moderate Risk Assessment and Plan Assessment: Severe coronary artery disease. Post cardiac catheterization on 09/10/2024 showed critical disease involving the ostial RCA and mid RCA as well as critical disease involving the ostial left main coronary artery. Hypertension Hyperlipidemia Asthma Osteoarthritis Prior history of smoking DVT prophylaxis and GI prophylaxis Plan: Patient is being continued on aspirin, statin and metoprolol and losartan. Continued on heparin drip. Cardiology is on board. CT surgery was consulted and preoperative workup for CABG is being done at this time. Family has not finalized her decision regarding bypass graft. Will continue to follow closely. Prognosis is guarded. Time with Patient: Greater than 30
--- NOTE | 2024-09-12 15:17 | CA ---
Transthoracic Echo Report Name: Elenita Cates Age: 79 Gender: F : 1945 Exam Date: 09/11/2024 13:28 Exam Location: [facility] Ht (in): 62 Wt (lb): 197 Ordering Physician: Jayce Bautista MD ([id number]) Attending/Referring Phys: Internet Application Developer Lavern Mccray RDCS Procedure CPT: Indications: post cath Cardiac Hx: Technical Quality: Fair Contrast 1: Total Dose (mL): Contrast 2: Total Dose (mL): MEASUREMENTS (Male / Female) Normal Values 2D ECHO LV Diastolic Diameter PLAX 4.3 cm 4.2 - 5.9 / 3.9 - 5.3 cm LV Systolic Diameter PLAX 2.7 cm IVS Diastolic Thickness 1.1 cm 0.6 - 1.0 / 0.6 - 0.9 cm LVPW Diastolic Thickness 1.5 cm 0.6 - 1.0 / 0.6 - 0.9 cm LV Relative Wall Thickness 0.6 RV Internal Dim ED PLAX 1.6 cm LVOT Diameter 1.7 cm LA Systolic Diameter LX 3.7 cm 3.0 - 4.0 / 2.7 - 3.8 cm LV Diastolic Volume MOD BP 52.8 cm??? 67 - 155 / 56 - 104 cm??? LV Systolic Volume MOD BP 19.9 cm??? 22 - 58 / 19 - 49 cm??? LV Ejection Fraction MOD BP 62.3 % >= 55 % LV Cardiac Index MOD BP 1206.0 cm???/min???m??? LV Diastolic Volume MOD 4C 42.9 cm??? LV Systolic Volume MOD 4C 17.3 cm??? LV Ejection Fraction MOD 4C 59.7 % LV Cardiac Index MOD 4C 938.3 cm???/min???m??? LV Diastolic Length 4C 6.7 cm LV Systolic Length 4C 5.6 cm LV Diastolic Volume MOD 2C 63.3 cm??? LV Systolic Volume MOD 2C 21.4 cm??? LV Ejection Fraction MOD 2C 66.2 % LV Cardiac Index MOD 2C 1535.8 cm???/min???m??? LV Diastolic Length 2C 6.9 cm LV Systolic Length 2C 6.1 cm LA Volume 66.2 cm??? 18 - 58 / 22 - 52 cm??? LA Volume Index 32.8 cm???/m??? 16 - 28 cm???/m??? M-MODE Aortic Root Diameter MM 2.4 cm LA Systolic Diameter MM 3.9 cm LA Ao Ratio MM 1.7 AV Cusp Separation MM 1.3 cm DOPPLER AV Peak Velocity 195.2 cm/s AV Peak Gradient 15.2 mmHg AV Mean Velocity 140.6 cm/s AV Mean Gradient 8.7 mmHg AV Velocity Time Integral 46.0 cm AI Peak Velocity 333.8 cm/s AI Peak Gradient 44.6 mmHg AI Pressure Half Time 732.6 ms LVOT Peak Velocity 128.7 cm/s LVOT Peak Gradient 6.6 mmHg LVOT Velocity Time Integral 34.9 cm LVOT Stroke Volume 83.0 cm??? LVOT Stroke Volume Index 43.7 ml/m??? LVOT Cardiac Index 3042.2 cm???/min???m??? AV Area Cont Eq vti 1.8 cm??? AV Area Cont Eq pk 1.6 cm??? MV Area PHT 2.8 cm??? Mitral E Point Velocity 99.8 cm/s Mitral A Point Velocity 88.7 cm/s Mitral E to A Ratio 1.1 MV Deceleration Time 270.9 ms TR Peak Velocity 265.0 cm/s TR Peak Gradient 28.1 mmHg Right Ventricular Systolic Press 32.5 mmHg FINDINGS Left Ventricle Left ventricular ejection fraction is estimated at 55-60 %. Mildly increased septal wall thickness. Moderately increased posterior wall thickness. Normal left ventricular systolic function with no obvious regional wall motion abnormalities. Left ventricular cavity size normal. Right Ventricle Normal right ventricular size and function. Right ventricular systolic pressure within normal limits. Right Atrium Normal right atrial size. Left Atrium Moderate left atrial dilatation. Mitral Valve Structurally normal mitral valve. Mitral annular calcification. Moderate mitral regurgitation. Aortic Valve Trileaflet aortic valve. Diffuse thickening (sclerosis) of the aortic valve cusps without reduced excursion. Mild aortic regurgitation. Tricuspid Valve Structurally normal tricuspid valve. Mild tricuspid regurgitation. No tricuspid stenosis. Pulmonic Valve Structurally normal pulmonic valve. Trace pulmonic regurgitation. No pulmonic stenosis. Pericardium No pericardial or pleural effusion. Aorta Normal size aortic root and proximal ascending aorta. CONCLUSIONS Normal LV systolic function Moderate mitral regurgitation Previewed by: Dr. Jayce Bautista MD (Electronically Signed) Final Date: 12 September 2024 15:16
[2024-09-12 17:14] LABS: % Iron Saturation 25.99 (12.00-45.00); Iron 79 UG/DL (50-170); Total Iron Binding Capacity 304 UG/DL (228-460)
[2024-09-13] MEDS: SODIUM CHLORIDE 0.9% 1,000 ML in EMPTY BAG 1 BAG IV ONE (02:59)
[2024-09-13] MEDS: ATORVASTATIN 80 MG TAB PO ONE (05:34)
[2024-09-13] MEDS: ASPIRIN 325 MG TAB PO ONE (05:34)
[2024-09-13 05:46] LABS: Glucose,Whole Blood 120 mg/dL (70-110)
[2024-09-13] MEDS ORDERED: ASPIRIN 325 MG TAB PO STA (08:19)
[2024-09-13 08:33] LABS: Basophils % (A) 0 %; Eosinophils # (A) 0.3 k/uL (0-0.7); Eosinophils % (A) 4 %; HCT 41.5 % (34.0-46.0); HGB 11.9 gm/dL (11.4-16.0); Hypochromasia Marked; Lymphocytes % (A) 22 %; MCH 22.9 pg (25.0-35.0); MCHC 28.6 g/dL (31.0-37.0); MCV 79.8 fL (80.0-100.0); Mean Platelet Volume 7.2; Monocytes # (A) 0.5 k/uL (0-1.0); Monocytes % (A) 6 %; Neutrophils # (A) 5.9 k/uL (1.3-7.7); Neutrophils % (A) 66 %; Platelet Count 201 k/uL (150-450); RDW 15.4 % (11.5-15.5)
[2024-09-13 08:49] LABS: African American GFR (CKD) 65 (>60 ml/min/1.73 sqM); Anion Gap 6 mmol/L; Blood Urea Nitrogen 15 mg/dL (7-17); Calcium 9.4 mg/dL (8.4-10.2); Carbon Dioxide 27 mmol/L (22-30); Chloride 108 mmol/L (98-107); Glucose 86 mg/dL (74-99); Non-African American GFR(CKD) 56 (>60 ml/min/1.73 sqM); Potassium 4.8 mmol/L (3.5-5.1); Sodium 141 mmol/L (137-145)
[2024-09-13] MEDS: ATORVASTATIN 80 MG TAB PO STA (09:38)
--- NOTE | 2024-09-13 09:54 | P.PN ---
Subjective Progress Note Date: 09/12/24 Patient is a 79-year-old female with a past medical history of asthma, hypertension, hyperlipidemia, osteoarthritis and prior history of smoking. Patient had cardiac catheterization on 09/10/2024 due to anginal symptoms. She was found to have calcified right and left coronary system and critical disease involving the ostial RCA and mid RCA as well as critical disease involving the ostial left main coronary artery. Cardiothoracic surgery was consulted for evaluation of CABG. Carotid duplex showed less than 50% stenosis of the carotid bifurcation on the right side and less than 50% stenosis of the carotid bifurcation on the left side. Lower extremity ultrasound showed normal ankle- brachial indicis bilaterally. CT chest showed no evidence for aortic aneurysm. Mild aortic arch calcifications. No acute process in the chest. Severe coronary atherosclerosis. Mild to moderate aortic valve calcifications. Right upper lobe 3 mm pulmonary nodule. Consider yearly lung cancer screening. Small h iatal hernia. Laboratory data showed WBC 7.0 hemoglobin 12.1 MCV 79.6 and platelets 206 sodium 143 potassium 4.2 chloride 109 bicarb is 26 BUN 13 and creatinine 0.81 blood sugar is 118 liver enzymes are not elevated the LDL 50.2 TSH 1.760. Hepatitis panel negative. 09/12/2024 Patient is currently sitting on side of the bed. Awake alert and orient x 3. Currently on room air. No complaints of chest pain or shortness of breath. No cough or sputum production. Patient is tolerating oral diet. Laboratories show WBC 6.4 hemoglobin 11.8 and platelets 193 MCV 79.2 Sodium 140 potassium 4.2 chloride 108 bicarb is 28 BUN 13 and creatinine 0.84 and blood sugar [address] surgery is on board. Objective - Vital Signs Vital signs: Vital Signs Temp 98.0 F 09/12/24 04:51 Pulse 75 09/12/24 04:51 Resp 16 09/12/24 04:51 BP 135/73 09/12/24 04:51 Pulse Ox 96 09/12/24 04:51 FiO2 Intake & Output 09/11/24 09/12/24 09/12/24 19:59 06:59 18:59 Intake Total 356.952 Balance 356.952 Weight Intake: Intake, IV Titration 106.952 Amount Heparin Sod,Pork in 0.45% 106.952 NaCl 25,000 unit In 0.45 % NaCl 1 250ml.bag @ 12 UNITS/KG/HR 10.764 mls/hr IV .[id number] [facility] Rx#: [id number] Oral 250 Other: Voiding Method # Voids - Exam PHYSICAL EXAMINATION: Patient is lying in the bed comfortably, no acute distress, awake alert and oriented.. HEENT: Normocephalic. Neck is supple. Pupils reactive. Nostrils clear. Oral cavity is moist. Neck reveals no JVD, carotid bruits, or thyromegaly. CHEST EXAMINATION: Trachea is central. Symmetrical expansion. Lung aguila clear to auscultation and percussion. CARDIAC: Normal S1, S2 with no gallops. Systolic murmur present ABDOMEN: Soft. Bowel sounds normal. No organomegaly. No abdominal bruits. Extremities: reveal no edema. No clubbing or cyanosis Neurologically awake, alert, oriented x3 with well-coordinated movements. No focal deficits noted Skin: No rash or skin lesions. Psychiatric: Coperative. Nonsuicidal Musculoskeletal: No joint swelling or deformity. Normal range of motion. - Labs CBC & Chem 7: 09/13/24 08:17 09/13/24 08:17 Labs: Abnormal Lab Results - Last 24 Hours (Table) 09/11/24 09/12/24 09/12/24 Range/Units 16:26 06:43 06:43 MCV 79.2 L (80.0-100.0) fL MCH 23.4 L (25.0-35.0) pg MCHC 29.6 L (31.0-37.0) g/dL APTT 49.2 H (22.0-30.0) sec Chloride 109 H (98-107) mmol/L 09/12/24 Range/Units 06:43 MCV (80.0-100.0) fL MCH (25.0-35.0) pg MCHC (31.0-37.0) g/dL APTT 35.6 H (22.0-30.0) sec Chloride (98-107) mmol/L Microbiology - Last 24 Hours (Table) 09/10/24 12:55 Nasal Screen MRSA/MSSA - Final Nasal Swab Assessment and Plan Assessment: Severe coronary artery disease. Post cardiac catheterization on 09/10/2024 showed critical disease involving the ostial RCA and mid RCA as well as critical disease involving the ostial left main coronary artery. Hypertension Hyperlipidemia Asthma Osteoarthritis Prior history of smoking Microcytic anemia. Rule out iron deficiency DVT prophylaxis and GI prophylaxis Plan: Patient is being continued on aspirin, statin and metoprolol and losartan. Continued on heparin drip. CT surgery was consulted and preoperative workup for CABG is being done at this time. Family has not finalized her decision regarding bypass graft. Cardiology is on board.Will continue to follow closely. Prognosis is guarded.
[2024-09-13] MEDS: IV FLUID CONTINUATION 1,000 ML IV ONE (12:05)
[2024-09-13] MEDS: fentaNYL (PF) 50 MCG/ML 2 ML AMP IVP ONE (12:13)
[2024-09-13] MEDS: MIDAZOLAM 2 MG/2 ML VIAL IVP ONE (12:13)
[2024-09-13] MEDS: LIDOCAINE 1% INJ 10MG/ML (20 ML MDV) SQ ONE (12:13)
[2024-09-13] MEDS: HEPARIN SODIUM 1,000 UN/ML (10ML VL) IV ONE (12:28)
[2024-09-13] MEDS: TICAGRELOR 90 MG TAB PO ONE (12:40)
[2024-09-13] MEDS: NITROGLYCERIN 1000MCG/10ML SYRINGE INTRACORON ONE ×2 (13:18→14:17)
[2024-09-13] MEDS: IOPAMIDOL-370 100ML BTL INJ ONE ×2 (13:20→14:27)
[2024-09-13] MEDS: SODIUM CHLORIDE 0.9% 1,000 ML IV ONE (13:47)
[2024-09-13] MEDS: MORPHINE SULFATE 4 MG/ML SYRINGE IVP ONE (14:16)
--- NOTE | 2024-09-13 14:34 | US ---
EXAMINATION TYPE: Pre-Operative Non-Invasive Evaluation of the hand for Potential Radial Artery Yessenia venegas, Measurements only DATE OF EXAM: 09/10/2024 4:27 PM CLINICAL INDICATION: Female, 79 years old with history of measurements only; , Preop- Cardiac Surgery Technique: grayscale and color Doppler imaging of the radial artery(s) SIDE PERFORMED: Left FINDINGS: Dominant hand: Right Duplex Findings: Radial Artery: Color flow seen Measurements in mm, transverse view: Left Radial: Proximal: 1.6 x 1.6 mm Mid: 1.6 x 1.5 mm Distal: 1.2 x 1.1 mm IMPRESSION: 1. No evidence for vascular occlusion. 2. Measurements as described above. [facility], , 09/13/2024 2:32 PM
[2024-09-13] MEDS: HEPARIN SODIUM,PORCINE (1 ML) 2,500 UNIT in SODIUM CHLORIDE 0.9% 250 ML IRRIGATION PRN (14:35)
[2024-09-13] MEDS: HEPARIN SODIUM,PORCINE 10,000 UNIT in SODIUM CHLORIDE 0.9% 1,000 ML IRRIGATION PRN (14:35)
[2024-09-13] MEDS ORDERED: ZOLPIDEM 5 MG TAB PO PRN (14:36)
[2024-09-13] MEDS ORDERED: ATROPINE SULFATE 0.1 MG/ML 10ML SYRINGE IV PRN (14:36)
[2024-09-13] MEDS ORDERED: RX INFO: IV CONTRAST WAS GIVEN 1 EACH MISC MISCELLANE PRN (14:36)
[2024-09-13] MEDS ORDERED: MAG HYDROX/AL HYDROX/SIMETH 30 ML CUP PO PRN (14:36)
[2024-09-13 14:55] LABS: Glucose,Whole Blood 87 mg/dL (70-110)
[2024-09-13] MEDS: SODIUM CHLORIDE 0.9% 1,000 ML in EMPTY BAG 1 BAG IV SCH (15:00)
[2024-09-13] MEDS: ENALAPRILAT 1.25 MG/ML 1 ML VIAL IVP STA (15:42)
[2024-09-13] MEDS: hydrALAZINE HCL 20 MG/ML 1 ML VIAL IVP STA (15:42)
--- NOTE | 2024-09-13 17:33 | P.PCN ---
Date of Procedure: 09/13/24 Operative Findings: Percutaneous coronary intervention Performing physician Jayce Bautista MD Procedure performed 1. Successful PCI of the mid and proximal RCA using a 3.5 x 38 and 4.0 x 15 mm Xience ELENA with an excellent angiographic results and reduction of stenosis from 99.9% to 0% 2. Successful PCI of unprotected left main coronary artery using 4.0 x 15 mm Xience ELENA with an excellent angiographic results and reduction of stenosis from 99% to 0% 3. Adjunctive use of lithotripsy balloon and IVUS 4. Adjunctive use of Impella CP in the left ventricle 5. Ultrasound-guided access of the right common femoral artery and right common femoral artery angiogram 6. Successful hemostasis of the right common femoral artery using 2 Perclose's and 1 Angio-Seal Complications None Level of sedation Moderate with sedation length of 120 minutes Indication The patient is a pleasant 79-year-old female patient who was experiencing symptoms of chest discomfort concerning for angina. She underwent a heart catheterization as an outpatient and she was found to have critical disease involving the RCA and left main was calcified right and left coronary system. She was seen by the cardiothoracic surgical team and she offered CABG. The patient refused CABG. She was brought today to undergo PCI knowing if this is a high risk procedure and that was discussed with her and her daughter in the room in details. Approach The right common femoral artery Procedure description After attending informed consent the patient was brought to the cardiac [employer]. The right common femoral artery was cannulated using micropuncture technique under ultrasound guidance the micropuncture wire passed easily then I placed the micropuncture sheath over the micropuncture wire then the micropuncture sheath was exchanged over a 3 5 wire into an 11 cm 6 Faroese sheath. Subsequently the sheath was flushed. Using the 035 wire I placed two Perclose devices at 11:00 and 2:00. Subsequently I placed an 8 Faroese sheath 11 cm at the right common femoral artery over a 3 5 wire. After that I did exchange my 035 wire into a stiff 035 wire using JR4 catheter. Then under fluoroscopy guidance the 8 Faroese sheath was exchanged into 14 Faroese sheath under fluoroscopy guidance. The sheath was subsequently flushed. Anticoag ulation at that point was initiated using heparin and continuous ACT throughout the procedure was performed per protocol. After that I did across the aortic valve. I did exchange the 035 stiff wire into regular or 3 5 wire using a pigtail catheter. Subsequently using the pigtail and the regular 035 wire I crossed the aortic valve. Then I did exchange the 035 wire in 2018 wire using the pigtail catheter and then I did advance the Impella CP over the 018 wire under fluoroscopy guidance. Subsequently the Impella CP was advanced to the LV where it was connected and turned on. After that I did access the 14 Faroese sheath hubb using the micropuncture needle at 11:00. The micropuncture wire passed easily then I did pull the wire and dilator and I placed a 3 5 wire which subsequently I placed over the 035 wire a 23 cm 6 Faroese braided sheath under fluoroscopy guidance. Subsequently the sheath was flushed. Please note that ACT monitoring was performed throughout the procedure. At that point I decided to intervene on the RCA. The RCA was engaged using JR4 with sidehole. Because the guide was not seated well I decided to wire the RCA using two wires the first wire was a whisper wire and a second wire was a run- through wire. Attempting advancing IVUS over the whisper wire was unsuccessful because the IVUS would not cross the ostial. At that point and knowing how calcified the lesion is I did do balloon angioplasty using 2.5 mm noncompliant balloon. That was performed also with difficulties. After that I was able to advance lithotripsy balloon and that was 3.5 mm balloon after IVUS was performed and showed that the diameter was around 3.5 mm and very calcified vessel. Balloon angioplasty was performed using the 3.5 mm lithotripsy balloon on the mid and proximal all the way to the ostial right coronary artery. After that I deployed in the mid and proximal RCA 3.5 x 38 mm stent and by the ostial RCA deployed 4.0 x 15 mm stent. An angiogram was performed showed excellent angiographic results with SHERRY-3 flow and the patient tolerated the procedure very well. After that I decided to intervene on the left main coronary artery. I did attempt engaging the left main using initially JL 4 catheter but I was unable but subsequently I was able to using JL 3 5 with sidehole guiding catheter. Subsequently I wired the LAD using the whisper wire and another whisper wire as a chastity wire to anchor the guide better and have more support. Again attempting advancing the IVUS was unsuccessful. At that point attempting advancing 2.5 mm noncompliant balloon was also unsuccessful. After that I did balloon angioplasty using 1.5 mm balloon and subsequently 2.0 mm balloon. Attempting advancing 2.5 mm NC balloon at that point was unsuccessful. I was able to advan ce 2.5 semicompliant balloon which was inflated under high pressure. After that I was able to advance 2.5 mm NC balloon. After that I did also do little angioplasty using 3 mm noncompliant balloon. Then intravascular ultrasound was performed IVUS and that showed a diameter around 4 mm. I did lithotripsy balloon using 4 mm and then I deployed a 4.0 x 12 mm Xience ELENA where the stent was positioned under fluoroscopy guidance and deployed under fluoroscopy guidance and postdilated using 4.5 mm balloon after IVUS was performed. Final angiogram showed excellent angiographic results with SHERRY-3 flow and the patient tolerated the procedure very well After that I did pull the wire and guiding catheter and subsequently I pulled the 6 Faroese sheath from the 14 Faroese sheath. Then the Impella was pulled across the aortic valve and it pulled out completely outside the body. Attempting doing hemostasis using the Perclose device was unsuccessful and was successful adding an 8 Faroese Angio-Seal and with that I was able to achieve good hemostasis and the patient tolerated the procedure extremely well. Postprocedure management Dual antiplatelet therapy Aggressive cholesterol control Risk factors modifications Follow-up with the patient
[2024-09-13] MEDS: TICAGRELOR 90 MG TAB PO SCH (21:42)
[2024-09-14 05:56] LABS: Basophils # (A) 0.1 k/uL (0-0.2); Basophils % (A) 0 %; Eosinophils # (A) 0.3 k/uL (0-0.7); Eosinophils % (A) 2 %; HCT 37.5 % (34.0-46.0); HGB 11.3 gm/dL (11.4-16.0); Hypochromasia Marked; Lymphocytes # (A) 2.9 k/uL (1.0-4.8); Lymphocytes % (A) 22 %; MCH 23.7 pg (25.0-35.0); MCHC 30.3 g/dL (31.0-37.0); MCV 78.4 fL (80.0-100.0); Mean Platelet Volume 8.3; Microcytosis Slight; Monocytes % (A) 7 %; Neutrophils # (A) 8.5 k/uL (1.3-7.7); Neutrophils % (A) 65 %; Platelet Count 212 k/uL (150-450); RBC 4.78 m/uL (3.80-5.40); WBC 13.1 k/uL (3.8-10.6)
[2024-09-14 06:04] LABS: African American GFR (CKD) 65 (>60 ml/min/1.73 sqM); Anion Gap 4 mmol/L; Blood Urea Nitrogen 15 mg/dL (7-17); Calcium 8.8 mg/dL (8.4-10.2); Carbon Dioxide 23 mmol/L (22-30); Chloride 111 mmol/L (98-107); Glucose 90 mg/dL (74-99); Non-African American GFR(CKD) 57 (>60 ml/min/1.73 sqM); Potassium 3.9 mmol/L (3.5-5.1); Sodium 138 mmol/L (137-145)
--- NOTE | 2024-09-14 08:42 | P.PN ---
Subjective Progress Note Date: 09/14/24 The patient is a pleasant 79-year-old female patient with a past medical history significant for CAD and hypertension and dyslipidemia and overweight was seen in the office recently for further evaluation of chest discomfort with exertion concerning for angina. The symptoms of chest discomfort has slightly progressed compared to before and given the nature of the symptoms I advised the patient to undergo a heart catheterization. The patient underwent a heart catheterization yesterday and that revealed extremely calcified right and left coronary systems with critical disease involving the ostial and mid RCA and critical disease involving the ostial left main with mild to moderate diffuse disease involving the LCx and LAD. With that being said an open heart consult was placed and the patient is processed to be seen by the surgical team. She was seen and evaluated this morning and she is asymptomatic and hemodynamically stable because of the finding on the heart catheterization I advised the patient to be admitted to the hospital and started on IV heparin and to undergo revascularization before she would be discharged home and that was discussed with her and her family in details and the patient is in full understanding and agreement. The physical examination is remarkable for regular rhythm with a systolic murmur at the right and left upper sternal border with clear breathing sounds bilaterally and no edema was noted. Please note that the patient underwent carotid duplex study and that showed mild disease bilaterally and CT scan also came in to be overall unremarkable October 09, 2024 The patient was seen and evaluated this morning. She talk to her family yesterday and she would like to proceed with percutaneous coronary intervention. The procedure in details was discussed with the patient and the family yesterday and they are in full understanding and agreement that the procedure is a high risk procedure. Will plan to proceed with PCI later on today with adjun ctive use of Impella CP for support. She reports no symptoms of chest pain or chest discomfort at this point since she was started on heparin. Examination is remarkable for regular rhythm with a clear breathing sounds bilaterally and no edema was noted. Will follow-up on the echocardiogram as well. September 14, 2024 Patient was seen and examined at bedside this a.m. Today she denies having any active chest pain chest pressure or shortness of breath her blood pressure is 120 over 75 mmHg, heart rate is 73 bpm. She has a small hematoma in the right groin which appears to be intact and not progressing in size. She denies any pain in the groin area. Her hemoglobin is stable. She denies any lightheadedness or dizziness. She has good pulses in bilateral lower extremity with no swelling in the legs. Patient is eager to go home On exam S1-S2 is audible, no murmurs appreciated Regular pulses in bilateral lower extremities and lower leg. No swelling bilateral lower extremity Lungs are clear to auscultate Normal JVP No focal neurological deficit, alert oriented to time place and person, detailed neuroexam was not performed Assessment Severe CAD as described above Status post PCI to proximal and mid RCA and left main with Impella support. Multiple comorbid conditions including hypertension dyslipidemia Plan Continue aspirin, Brilinta 90 mg twice a day, Lipitor 80 mg, losartan 100 mg, metoprolol succinate 25 mg daily. I have recommended that she should be on 2 blood thinners without any interruptions for next 1 year because of the nature of her stenting. I have advised her not to stop these blood thinners if she has any bleeding please contact cardiology office before stopping her blood thinners. She is okay to go home Objective - Vital Signs Vital signs: Vital Signs Temp 97.9 F 09/14/24 04:00 Pulse 79 09/14/24 07:00 Resp 29 H 09/14/24 07:00 BP 120/64 09/14/24 07:00 Pulse Ox 98 09/14/24 07:52 FiO2 Intake & Output 09/13/24 09/14/24 09/14/24 18:59 06:59 18:59 Intake Total 943.048 870 10 Balance 943.048 870 10 Weight 90.8 kg Intake: IV 600 770 10 Sodium Chloride 0.9% 1, 300 770 10 000 ml In Empty Bag 1 bag @ 75 mls/hr IV .[id number] [facility] Rx#:[id number] Intake, IV Titration 143.048 Amount Heparin Sod,Pork in 0.45% 143.048 NaCl 25,000 unit In 0.45 % NaCl 1 250ml.bag @ 12 UNITS/KG/HR 10.764 mls/hr IV .[id number] [facility] Rx#: [id number] Oral 200 100 Other: Voiding Method Bedpan Toilet # Voids 1 # Bowel Movements 1 - Labs CBC & Chem 7: 09/14/24 05:30 09/14/24 05:30 Labs: Abnormal Lab Results - Last 24 Hours (Table) 09/13/24 09/13/24 09/14/24 Range/Units 08:17 08:17 05:30 WBC 13.1 H (3.8-10.6) k/uL Hgb 11.3 L (11.4-16.0) gm/dL MCV 78.4 L (80.0-100.0) fL MCH 23.7 L (25.0-35.0) pg MCHC 30.3 L (31.0-37.0) g/dL RDW 16.0 H (11.5-15.5) % Neutrophils # 8.5 H (1.3-7.7) k/uL APTT 42.0 H (22.0-30.0) sec Chloride 108 H (98-107) mmol/L 09/14/24 Range/Units 05:30 WBC (3.8-10.6) k/uL Hgb (11.4-16.0) gm/dL MCV (80.0-100.0) fL MCH (25.0-35.0) pg MCHC (31.0-37.0) g/dL RDW (11.5-15.5) % Neutrophils # (1.3-7.7) k/uL APTT (22.0-30.0) sec Chloride 111 H (98-107) mmol/L
[2024-09-14 10:14] VITALS: TEMP 98.9
[2024-09-14 11:15] VITALS: BMI 36.6
[2024-09-14 14:49] VITALS: BP 111/61; PULSE 74; RESP 20
== END 2024-09-14 15:50 | disposition home or self-care (01) | DRG 215 ==
LOC: CATHCVL 08:04 → 6NMEDSUR 10:32 → 3SCARD 10:32 → CATHCVL 10:32 → 3SCARD 09-13 11:35 → 2SICU 09-13 14:22
PROVIDERS: ADMIT Internal Medicine; ATTEND Internal Medicine
PROC: 4A023N7 Measurement of Cardiac Sampling and Pressure, Left Heart, Percutaneous Approach (ICD-10-PCS; 2024-09-10)
PROC: B2111ZZ Fluoroscopy of Multiple Coronary Arteries using Low Osmolar Contrast (ICD-10-PCS; 2024-09-10)
PROC: B41F1ZZ Fluoroscopy of Right Lower Extremity Arteries using Low Osmolar Contrast (ICD-10-PCS; 2024-09-13)
PROC: B240ZZ3 Ultrasonography of Single Coronary Artery, Intravascular (ICD-10-PCS; 2024-09-13)
PROC: B241ZZ3 Ultrasonography of Multiple Coronary Arteries, Intravascular (ICD-10-PCS; 2024-09-13)
PROC: 02HW3RZ Insertion of Short-term External Heart Assist System into Thoracic Aorta, Descending, Percutaneous Approach (ICD-10-PCS; principal; 2024-09-13 12:00)
PROC: 5A0221D Assistance with Cardiac Output using Impeller Pump, Continuous (ICD-10-PCS; 2024-09-13 12:00)
PROC: 02HW3RZ Insertion of Short-term External Heart Assist System into Thoracic Aorta, Descending, Percutaneous Approach (ICD-10-PCS; 2024-09-13 12:00)
PROC: 027134Z Dilation of Coronary Artery, Two Arteries with Drug-eluting Intraluminal Device, Percutaneous Approach (ICD-10-PCS; 2024-09-13 12:00)
PROC: 02F13ZZ Fragmentation in Coronary Artery, Two Arteries, Percutaneous Approach (ICD-10-PCS; 2024-09-13 12:00)
DX: I25.119 Atherosclerotic heart disease of native coronary artery with unspecified angina pectoris (principal); I10 Essential (primary) hypertension; E78.5 Hyperlipidemia, unspecified; J44.9 Chronic obstructive pulmonary disease, unspecified; M19.90 Unspecified osteoarthritis, unspecified site; G50.0 Trigeminal neuralgia; D50.9 Iron deficiency anemia, unspecified; L98.8 Other specified disorders of the skin and subcutaneous tissue; J45.909 Unspecified asthma, uncomplicated; I08.0 Rheumatic disorders of both mitral and aortic valves; K44.9 Diaphragmatic hernia without obstruction or gangrene; I65.29 Occlusion and stenosis of unspecified carotid artery; Z82.49 Family history of ischemic heart disease and other diseases of the circulatory system; Z79.82 Long term (current) use of aspirin; Z79.899 Other long term (current) drug therapy; Z87.891 Personal history of nicotine dependence; Z90.710 Acquired absence of both cervix and uterus
CPT/HCPCS: 33990; 71046; 71250; 80048; 80053; 80061; 80074; 81003; 83036; 83735; 84443; 85025; 85610; 85730; 87070; 92972; 92978; 93306; 93458; 93880; 93922; 93970; 94150; 94760